=== PATIENT | female | born 1965 | race Caucasian/White ===

== ENCOUNTER 2020-07-10 01:55 | Emergency (ER) | payer OTHER ==
[2020-07-10] MEDS ORDERED: NORCO 5-325 TA1 EACH PO (04:13)
== END 2020-07-10 05:00 | disposition home or self-care (01) ==
LOC: FER 01:55
DX: S42.201A Unspecified fracture of upper end of right humerus, initial encounter for closed fracture (principal); S40.812A Abrasion of left upper arm, initial encounter; E11.22 Type 2 diabetes mellitus with diabetic chronic kidney disease; I12.0 Hypertensive chronic kidney disease with stage 5 chronic kidney disease or end stage renal disease; N18.6 End stage renal disease; J45.909 Unspecified asthma, uncomplicated; E66.01 Morbid (severe) obesity due to excess calories; Z87.891 Personal history of nicotine dependence; Z79.899 Other long term (current) drug therapy; Z99.2 Dependence on renal dialysis; W06.XXXA Fall from bed, initial encounter; Y92.009 Unspecified place in unspecified non-institutional (private) residence as the place of occurrence of the external cause
CPT/HCPCS: 73030; 73060; 96372; J1170; J2405

== ENCOUNTER 2020-12-28 15:24 | Emergency (ER) | payer OTHER ==
[~2020-12-28 15:24] MED LIST: NORCO 5-325 TA1 EACH PO
[2020-12-28 16:07] LABS: BASOPHIL 0.5 % (0-2); EOSINOPHIL 0.3 % (0-5); HCT 33.5 % (37.0-47.0); HGB 10.4 g/dl (12.5-16.0); LYMPHOCYTE 9.9 % (15-48); MCH 34.4 pg (25.0-31.0); MCV 110.9 fL (78.0-100.0); MONOCYTE 3.8 % (0-12); NEUTROPHIL 84.7 % (41-80); NRBC 0.2; PLT 237 K/uL (150-400); RBC 3.02 M/uL (4.20-5.40); RDW 15.4 % (11.5-14.0); WBC 17.7 K/uL (4.0-10.5)
[2020-12-28 17:04] LABS: LACTIC ACID 1.3 mmol/L (0.4-1.9)
[2020-12-28 17:06] LABS: ALBUMIN 2.6 g/dL (3.4-5.0); BILIRUBIN - TOTAL 0.5 mg/dL (0.2-1.0); BUN/CREAT RATIO (CALC) 4.5 RATIO; CREATININE 5.33 mg/dL (0.51-0.95); POTASSIUM 3.9 mmol/L (3.5-5.1); TOTAL PROTEIN 7.6 g/dL (6.4-8.2)
== END 2020-12-29 00:19 | disposition other institution (70) ==
LOC: FER 15:24
PROVIDERS: Nurse Practitioner Family
DX: A41.9 Sepsis, unspecified organism (principal); R65.20 Severe sepsis without septic shock; J96.00 Acute respiratory failure, unspecified whether with hypoxia or hypercapnia; I50.9 Heart failure, unspecified; L03.311 Cellulitis of abdominal wall; Z20.822 Contact with and (suspected) exposure to COVID-19; L03.116 Cellulitis of left lower limb; L03.115 Cellulitis of right lower limb; D64.9 Anemia, unspecified; E11.22 Type 2 diabetes mellitus with diabetic chronic kidney disease; N18.6 End stage renal disease; E66.01 Morbid (severe) obesity due to excess calories; Z99.2 Dependence on renal dialysis
CPT/HCPCS: 36415; 36600; 71045; 80053; 82150; 82803; 83605; 83690; 83880; 85025; 87040; 93005; 94640; 94660; 94664; 94762; J2543; J3370; J7030; J7050; U0002

== ENCOUNTER 2021-02-18 18:05 | Inpatient (IN) | payer OTHER ==
[~2021-02-18] VITALS: Ht 165.1 cm; Wt 201.0 kg
[2021-02-18] MEDS ORDERED: APRESOLINE100 MG PO (18:29)
[2021-02-18] MEDS ORDERED: CLARITIN10 MG PO (18:29)
[2021-02-18 18:30] LABS: BASOPHIL 0.5 % (0-2); EOSINOPHIL 0.2 % (0-5); HGB 10.8 g/dl (12.5-16.0); MCH 33.8 pg (25.0-31.0); MCV 112.5 fL (78.0-100.0); MONOCYTE 3.2 % (0-12); MPV 10.4 fL (6.0-9.5); NRBC 0.2; PLT 232 K/uL (150-400); RDW 16.5 % (11.5-14.0); WBC 25.6 K/uL (4.0-10.5)
[2021-02-18] MEDS ORDERED: SUCRALFATE1 GM PO (18:30)
[2021-02-18] MEDS ORDERED: METOCLOPRAMIDE10 MG PO (18:30)
[2021-02-18 18:31] LABS: NEUTROPHIL 90.3 % (41-80)
[2021-02-18] MEDS ORDERED: VITAMIN D3125 MC1 PO (18:31)
[2021-02-18] MEDS ORDERED: MELOXICAM15 MG PO (18:31)
[2021-02-18] MEDS ORDERED: VENTOLIN HFA IN18 GM INH (18:32)
[2021-02-18] MEDS ORDERED: AURYXIA210 MG PO (18:32)
[2021-02-18] MEDS ORDERED: VENTOLIN (2.5 MG/3 M INH (18:33)
[2021-02-18 18:49] LABS: ALBUMIN 2.6 g/dL (3.4-5.0); BILIRUBIN - TOTAL 0.4 mg/dL (0.2-1.0); BUN/CREAT RATIO (CALC) 5.6 RATIO; CREATININE 6.02 mg/dL (0.51-0.95); GLOBULIN (CALCULATION) 5.1 g/dL; TOTAL PROTEIN 7.7 g/dL (6.4-8.2)
[2021-02-18 19:01] LABS: CORONAVIRUS 2019 SARS-COV-2 NEGATIVE (NEGATIVE); INFLUENZA A NAA NEGATIVE (NEGATIVE)
[2021-02-19 04:32] LABS: BUN/CREAT RATIO (CALC) 6.2 RATIO; CREATININE 6.5 mg/dL (0.51-0.95); POTASSIUM 5.6 mmol/L (3.5-5.1)
[2021-02-19 15:11] LABS: BASOPHIL 0.4 % (0-2); EOSINOPHIL 0.6 % (0-5); HCT 33.2 % (37.0-47.0); MCH 33.6 pg (25.0-31.0); MCHC 30.1 g/dL (32.0-36.0); MCV 111.4 fL (78.0-100.0); MONOCYTE 2.9 % (0-12); MPV 10.1 fL (6.0-9.5); NRBC 0.1; PLT 197 K/uL (150-400); RBC 2.98 M/uL (4.20-5.40); RDW 16.1 % (11.5-14.0); WBC 18.1 K/uL (4.0-10.5)
[2021-02-19 15:13] LABS: NEUTROPHIL 91.4 % (41-80)
[2021-02-19 15:34] LABS: BUN/CREAT RATIO (CALC) 6.6 RATIO; CREATININE 6.94 mg/dL (0.51-0.95); POTASSIUM 5.6 mmol/L (3.5-5.1)
[2021-02-20 06:25] LABS: BASOPHIL 0.5 % (0-2); EOSINOPHIL 0.8 % (0-5); HCT 33.5 % (37.0-47.0); HGB 10.3 g/dl (12.5-16.0); LYMPHOCYTE 4.8 % (15-48); MCH 33.9 pg (25.0-31.0); MCHC 30.7 g/dL (32.0-36.0); MCV 110.2 fL (78.0-100.0); MONOCYTE 3.9 % (0-12); MPV 10.6 fL (6.0-9.5); NEUTROPHIL 88.9 % (41-80); NRBC 0.1; PLT 206 K/uL (150-400); RBC 3.04 M/uL (4.20-5.40); RDW 16.2 % (11.5-14.0); WBC 16.8 K/uL (4.0-10.5)
[2021-02-20 06:43] LABS: ALBUMIN 2.2 g/dL (3.4-5.0); BILIRUBIN - TOTAL 0.5 mg/dL (0.2-1.0); CREATININE 4.16 mg/dL (0.51-0.95); GLOBULIN (CALCULATION) 5.3 g/dL; TOTAL PROTEIN 7.5 g/dL (6.4-8.2)
--- NOTE | 2021-02-20 19:11 | NUR ---
PT HAD A 20 IN LH AT BEGINNING OF SHIFT, IV WAS PAINFUL ADN DIFFICULT TO FLUSH WITH EDEMA, IV REMOVED. PT WAS STUCK TOTAL OF 5 TIMES FOR A PERIPHERAL AND 4 TIMES FOR A MIDLINE ALL UNSUCCESSFUL. ELIEZER FAROOQ WAS ABLE TO GET A 20 IN LAC AT 1830 AND VANCOMYCIN WAS STARTED. CALLED [facility], STATED TO DISCARD [id number] ZOSYN. AND TO GIVE VANCOMYCIN, LEVAQUIN AND THEN 2000 ZOSYN.
--- NOTE | 2021-02-20 19:13 | NUR ---
02/20/21 ATTEMPTED SEVERAL TIMES TO INSERT MIDLINE IN LEFT UPPER ARM. A 21GA NEEDLE WAS USED. A BASILIC VEIN WAS VISUALIZED USING THE SITE RITE SIX. THE AREA WAS NUMBED WITH 1CC OF 1% LIDOCAINE. GOOD BLOOD RETURN WAS NOTED. UNABLE TO THREEAD THE GUIDE WIRE. PROCEDURE WAS ATTEMPTED X2. PROCEDURE WAS ABORTED. WILL ATTEMPTED LATER WITH ASSITANCE. PROEDURE ATTEMPTED AGAIN WITH ASSISTANCE. USING A 21GA NEEDLE AND THE SITE RITE SITE A BASILIC VEIN WAS VISUALIZED. THE NEEDLE WENT TO THE HUB OF THE PT'S SKIN. ATTMEPTED X3. UNSUCCESSFUL. A 20GA ANGIO S/L WA PLACED IN THE LEFT A/C X 1 STICK. PT TOLERATED WELL. PT'S NURSE ASSISTED WTIH PROEDURE.
[2021-02-21 09:40] LABS: BUN/CREAT RATIO (CALC) 6.6 RATIO; CREATININE 5.74 mg/dL (0.51-0.95); POTASSIUM 4.5 mmol/L (3.5-5.1)
--- NOTE | 2021-02-21 19:22 | NUR ---
PT BLOOD PRESSURE LOW 90/30 AUTOMATIC 70/30 MANUAL PT GIVEN 10MG MIDODRINE BLOOD PRESSURE REMAINED 70/40 500ML LR BOLUS BP 80/40 500ML LR BOLUS GIVEN BP REMAINS 80/40 1000 ML LR BOLUS GIVEN 5MG MIDODRIN BP 88/48 RUBEN FOWLER AWARE MICHAEL CALLED TO VERIFY DIALYSIS, STATES TO FOLLOW THE PREVIOUS DIALYSIS ORDERS AND TO BE COMPLETED EVERY FRIDAY, FRIDAY, AND FRIDAY. STATED TO CHALLENGE 4-5 LITER REMOVAL. NOTIFIED THAT PT HAS BEEN HYPOTENSIVE STATES FOR DIALYSS NURSE TO "DO WHAT THEY CAN" AMLCOLM NOTIFEID OF CONVERSATION REPORT GIVEN OFF TO BEBA FAROOQ
[2021-02-22 09:34] LABS: CREATININE 4.33 mg/dL (0.51-0.95); POTASSIUM 4.2 mmol/L (3.5-5.1)
[2021-02-22] MEDS ORDERED: ZYVOX600 MG PO (14:15)
[2021-02-22] MEDS ORDERED: LEVAQUIN250 MG PO (14:15)
[2021-02-22] MEDS ORDERED: MIDODRINE HCL10 MG PO (14:15)
--- NOTE | 2021-02-22 14:56 | NUR ---
PT WALK TEST PERFORMED PRIOR TO D/C. PT WAS 89% RESTING ON ROOM AIR. WALKING ON ROOM AIR DROPPED TO 86% AND WAS VERY FATIGUED AND SOA. PT REQUIRED 3L NC TO RECOVER TO 91%.
--- NOTE | 2021-02-22 16:40 | NUR ---
MET WITH PT. SHE IS CURRENT WITH [facility]. SHE REPORTS TO HAVE A ROLLING WALKER AND ELECTRIC WHEELCHAIR. SHE WILL NEED 3 L OF O2. FAXED INFO TO CHACHA AT [facility] FOR PORTABLE AND HOME CONCENTRATOR. PT. SIGNED CHOICE FORM.
[2021-02-23 09:11] LABS: HBSAG SCREEN Negative (Negative)
== END 2021-02-22 16:45 | disposition home health service (06) | DRG 871 ==
LOC: FER 18:05 → FTCU 02-19 19:58 → FER 02-19 20:58 → FTCU 02-20 08:35
PROVIDERS: Allergy & Immunology Allergy; Emergency Medicine; Emergency Medicine Emergency Medical Services; Internal Medicine Nephrology; Nurse Practitioner; ADMIT Internal Medicine
PROC: 5A09457 Assistance with Respiratory Ventilation, 24-96 Consecutive Hours, Continuous Positive Airway Pressure (ICD-10-PCS; 2021-02-19)
PROC: 5A1D70Z Performance of Urinary Filtration, Intermittent, Less than 6 Hours Per Day (ICD-10-PCS; 2021-02-19)
PROC: 5A1D70Z Performance of Urinary Filtration, Intermittent, Less than 6 Hours Per Day (ICD-10-PCS; principal; 2021-02-20)
PROC: 5A1D70Z Performance of Urinary Filtration, Intermittent, Less than 6 Hours Per Day (ICD-10-PCS; 2021-02-22)
DX: A41.9 Sepsis, unspecified organism (principal); J18.9 Pneumonia, unspecified organism; L89.893 Pressure ulcer of other site, stage 3; N18.6 End stage renal disease; J96.01 Acute respiratory failure with hypoxia; Z68.45 Body mass index [BMI] 70 or greater, adult; E66.2 Morbid (severe) obesity with alveolar hypoventilation; D84.89 Other immunodeficiencies; I12.0 Hypertensive chronic kidney disease with stage 5 chronic kidney disease or end stage renal disease; E11.22 Type 2 diabetes mellitus with diabetic chronic kidney disease; Z20.822 Contact with and (suspected) exposure to COVID-19; I95.3 Hypotension of hemodialysis; E87.70 Fluid overload, unspecified; K21.9 Gastro-esophageal reflux disease without esophagitis; J45.909 Unspecified asthma, uncomplicated; L89.892 Pressure ulcer of other site, stage 2; L89.152 Pressure ulcer of sacral region, stage 2; Z99.2 Dependence on renal dialysis; Z98.890 Other specified postprocedural states; Z80.2 Family history of malignant neoplasm of other respiratory and intrathoracic organs; Z79.84 Long term (current) use of oral hypoglycemic drugs; Z79.899 Other long term (current) drug therapy; Z87.891 Personal history of nicotine dependence; Y95 Nosocomial condition
CPT/HCPCS: 36415; 36600; 71045; 80048; 80053; 80202; 82803; 82962; 83605; 83880; 84145; 84484; 85025; 85379; 87040; 87070; 87077; 87186; 87205; 87340; 93005; 94010; 94640; 94660; 94664; 94760; 97110; 97163; 97166; 97530; 97530-GP; 97535; C1751; J0610; J0692; J1642; J1650; J1956; J2543; J3370; J7030; J7050; J7120; U0002

== ENCOUNTER 2021-04-24 12:09 | Emergency (ER) | payer OTHER ==
[~2021-04-24 12:09] MED LIST changes: +APRESOLINE100 MG PO; +AURYXIA210 MG PO; +CLARITIN10 MG PO; +LEVAQUIN250 MG PO; +MELOXICAM15 MG PO; +METOCLOPRAMIDE10 MG PO; +MIDODRINE HCL10 MG PO; +SUCRALFATE1 GM PO; +VENTOLIN (2.5 MG/3 M INH; +VENTOLIN HFA IN18 GM INH; +VITAMIN D3125 MC1 PO; +ZYVOX600 MG PO
[2021-04-24 13:17] LABS: BASOPHIL 0.3 % (0-2); EOSINOPHIL 0.1 % (0-5); HCT 41.4 % (37.0-47.0); HGB 12.4 g/dl (12.5-16.0); LYMPHOCYTE 2.7 % (15-48); MCH 32.9 pg (25.0-31.0); MCV 109.8 fL (78.0-100.0); MONOCYTE 2.1 % (0-12); MPV 10.2 fL (6.0-9.5); NEUTROPHIL 94.3 % (41-80); NRBC 0.1; RBC 3.77 M/uL (4.20-5.40); RDW 15.2 % (11.5-14.0); WBC 18.9 K/uL (4.0-10.5)
[2021-04-24 13:18] LABS: PLT 227 K/uL (150-400)
[2021-04-24 14:14] LABS: LACTIC ACID 2.5 mmol/L (0.4-1.9)
[2021-04-24 14:21] LABS: CORONAVIRUS 2019 SARS-COV-2 NEGATIVE (NEGATIVE); INFLUENZA A NAA NEGATIVE (NEGATIVE)
[2021-04-24 17:51] LABS: INR 1.18 (0.9-1.2); PROTHROMBIN TIME 14.4 SECONDS (11.8-13.4); PTT 33.2 SECONDS (24.4-34.7)
[2021-04-24 17:57] LABS: CREATININE 5.37 mg/dL (0.51-0.95); POTASSIUM 5.3 mmol/L (3.5-5.1)
== END 2021-04-24 18:35 | disposition other institution (70) ==
LOC: FER 12:09
PROVIDERS: Emergency Medicine; Nurse Practitioner Family
DX: A41.9 Sepsis, unspecified organism (principal); R65.21 Severe sepsis with septic shock; J18.9 Pneumonia, unspecified organism; N18.6 End stage renal disease; Z99.2 Dependence on renal dialysis; Z20.822 Contact with and (suspected) exposure to COVID-19
CPT/HCPCS: 36415; 36600; 71045; 80048; 82803; 83605; 83880; 84145; 84484; 85025; 85610; 85730; 87040; 93005; 96365; 96366; 96367; 96368; 96375; J1100; J1956; J2543; J3370; J7040; J7050; U0002

== ENCOUNTER 2021-10-18 19:03 | Emergency (ER) | payer OTHER ==
[2021-10-18 20:36] LABS: BASOPHIL 0.2 % (0-2); EOSINOPHIL 0 % (0-5); HCT 30.5 % (37.0-47.0); LYMPHOCYTE 3.3 % (15-48); MCH 32.4 pg (25.0-31.0); MCHC 32.8 g/dL (32.0-36.0); MCV 98.7 fL (78.0-100.0); MONOCYTE 1.6 % (0-12); NEUTROPHIL 93.9 % (41-80); NRBC 0; PLT 204 K/uL (150-400); RBC 3.09 M/uL (4.20-5.40); RDW 13.9 % (11.5-14.0); WBC 20.2 K/uL (4.0-10.5)
[2021-10-18 21:06] LABS: ALBUMIN 2.3 g/dL (3.4-5.0); BILIRUBIN - TOTAL 0.5 mg/dL (0.2-1.0); BUN/CREAT RATIO (CALC) 9.8 RATIO; CREATININE 7.26 mg/dL (0.51-0.95); GLOBULIN (CALCULATION) 4.5 g/dL; POTASSIUM 4.4 mmol/L (3.5-5.1); TOTAL PROTEIN 6.8 g/dL (6.4-8.2)
[2021-10-18 21:07] LABS: LACTIC ACID 1.9 mmol/L (0.4-1.9)
== END 2021-10-19 03:58 | disposition other institution (70) ==
LOC: FER 19:03
PROVIDERS: Internal Medicine
DX: A41.9 Sepsis, unspecified organism (principal); R65.21 Severe sepsis with septic shock; J18.9 Pneumonia, unspecified organism; J81.1 Chronic pulmonary edema; E11.22 Type 2 diabetes mellitus with diabetic chronic kidney disease; N18.6 End stage renal disease; Z99.2 Dependence on renal dialysis; Z91.15 Patient's noncompliance with renal dialysis
CPT/HCPCS: 36415; 36600; 71045; 80053; 82803; 83605; 83880; 84145; 84484; 85025; 87040; 93005; 96365; 96367; 96375; J2543; J3010; J3370; J7050

== ENCOUNTER 2022-02-23 19:40 | Emergency (ER) | payer OTHER ==
[2022-02-23 22:07] LABS: BASOPHIL 0.3 % (0-2); EOSINOPHIL 0.5 % (0-5); HGB 12.1 g/dl (12.5-16.0); MCH 31.8 pg (25.0-31.0); MCHC 31.8 g/dL (32.0-36.0); MONOCYTE 2.8 % (0-12); MPV 9.5 fL (6.0-9.5); NEUTROPHIL 88.4 % (41-80); NRBC 0; PLT 426 K/uL (150-400); RDW 14.5 % (11.5-14.0); WBC 19.1 K/uL (4.0-10.5)
[2022-02-23 22:26] LABS: ALBUMIN 2.8 g/dL (3.4-5.0); BILIRUBIN - TOTAL 0.5 mg/dL (0.2-1.0); CREATININE 5.55 mg/dL (0.51-0.95); GLOBULIN (CALCULATION) 5.6 g/dL; POTASSIUM 3.2 mmol/L (3.5-5.1); TOTAL PROTEIN 8.4 g/dL (6.4-8.2)
== END 2022-02-24 02:35 | disposition other institution (70) ==
LOC: FER 19:40
PROVIDERS: Physician Assistant
DX: A41.9 Sepsis, unspecified organism (principal); L03.116 Cellulitis of left lower limb; I48.91 Unspecified atrial fibrillation; I12.9 Hypertensive chronic kidney disease with stage 1 through stage 4 chronic kidney disease, or unspecified chronic kidney disease; E11.22 Type 2 diabetes mellitus with diabetic chronic kidney disease; N18.9 Chronic kidney disease, unspecified; Z99.2 Dependence on renal dialysis; Z20.822 Contact with and (suspected) exposure to COVID-19; Z79.01 Long term (current) use of anticoagulants
CPT/HCPCS: 36415; 80053; 83605; 84145; 85025; 87040; J2270; J2543; J3370; J7050; U0002